=== PATIENT | female | born 1960 | race Caucasian/White ===

== ENCOUNTER 2017-12-29 06:30 | Emergency (ER) | payer OTHER ==
[2017-12-29] MEDS ORDERED: traMADol 50 MG Tab PO ONE (07:31)
--- NOTE | 2017-12-29 07:37 | EDM.PDOC ---
ED HPI GENERAL MEDICAL PROBLEM - General Chief Complaint: General Stated Complaint: FELL INJURED RIBS Time Seen by Provider: 12/29/17 07:05 Source of Information: Reports: Patient, Family, RN History Limitations: Reports: No Limitations - History of Present Illness INITIAL COMMENTS - FREE TEXT/NARRATIVE: 57 yo female fell getting out of bed this morning about 0430h when she tripped over a suitcase. Has pain with breathing. Has not noticed gross hematuria. No SOB. Took acetaminophen without relief. Has many medication allergies. No other injuries. 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 Left Upper Posterior Chest Pain Score (Numeric/FACES): 9 - Related Data Allergies Allergy/AdvReac Type Severity Reaction Status Date / Time acetaminophen [From Percocet] Allergy Itching Verified 12/29/17 06:48 aspirin Allergy Swelling Verified 12/29/17 06:48 codeine Allergy Itching Verified 12/29/17 06:48 ibuprofen Allergy Swelling Verified 12/29/17 06:48 oxycodone [From Percocet] Allergy Itching Verified 12/29/17 06:48 Penicillins Allergy Cannot Verified 12/29/17 06:48 Remember propoxyphene [From Darvon] Allergy Itching Verified 12/29/17 06:48 ropinirole [From Requip] Allergy Nausea Verified 12/29/17 06:48 Home Meds: Home Meds Albuterol [Ventolin HFA] 1 - 2 puff INH ASDIRECTED PRN 12/29/17 [History] Cetirizine [ZyrTEC] 10 mg PO ASDIRECTED PRN 12/29/17 [History] Omeprazole 40 mg PO BID 12/29/17 [History] Pramipexole [Mirapex] 0.25 mg PO ASDIRECTED PRN 12/29/17 [History] Zolpidem Tartrate [Ambien] 10 mg PO DAILY 12/29/17 [History] Past Medical History Respiratory History: Reports: Asthma Gastrointestinal History: Reports: GERD 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 Social & Family History - Alcohol Use Number of Drinks Per Day: 3 - Recreational Drug Use Recreational Drug Use: No ED ROS GENERAL - Review of Systems Review Of Systems: See Below Constitutional: Reports: No Symptoms HEENT: Reports: No Symptoms Respiratory: Reports: Pleuritic Chest Pain. Denies: Shortness of Breath, Wheezing, Cough, Sputum, Hemoptysis Cardiovascular: Reports: No Symptoms GI/Abdominal: Reports: No Symptoms : Reports: No Symptoms Musculoskeletal: Reports: Back Pain (L mid back) Skin: Reports: No Symptoms Neurological: Reports: No Symptoms ED EXAM, GENERAL - Physical Exam Exam: See Below Exam Limited By: No Limitations General Appearance: Alert, WD/WN, No Apparent Distress Eye Exam: Bilateral Eye: Normal Inspection Ears: Normal External Exam, Normal Canal, Hearing Grossly Normal, Normal TMs Ear Exam: Bilateral Ear: Auricle Normal, Canal Normal, TM normal Nose: Normal Inspection, Normal Mucosa, No Blood Throat/Mouth: Normal Inspection, Normal Lips, Normal Oropharynx, Normal Voice, No Airway Compromise Head: Atraumatic, Normocephalic Neck: Normal Inspection, Supple, Non-Tender Respiratory/Chest: No Respiratory Distress, Lungs Clear, Normal Breath Sounds, No Accessory Muscle Use Cardiovascular: Regular Rate, Rhythm, No Edema GI/Abdominal: Normal Bowel Sounds, Soft, Non-Tender, No Distention Back Exam: Normal Inspection, Other (rib tenderness without associated crepitus over the L mid back. ). No: CVA Tenderness (R), CVA Tenderness (L) Extremities: Normal Inspection, Normal Range of Motion, Non-Tender, No Pedal Edema Neurological: Alert, Oriented, CN II-XII Intact, Normal Cognition, No Motor/ Sensory Deficits Psychiatric: Normal Affect, Normal Mood Skin Exam: Warm, Dry, Intact, Normal Color, No Rash Lymphatic: No Adenopathy Course - Vital Signs Last Recorded V/S: Last Vital Signs Temp 37.2 C 12/29/17 06:49 Pulse 76 12/29/17 06:49 Resp 16 12/29/17 06:49 BP 133/80 12/29/17 06:49 Pulse Ox 98 12/29/17 06:49 - Orders/Labs/Meds Orders: Active Orders 24 hr Category Date Time Status Chest 2V [CR] Stat Exams 12/29/17 07:31 Taken UA W/MICROSCOPIC [URIN] Stat Lab 12/29/17 08:12 Ordered Labs: Laboratory Tests 12/29/17 Range/Units 08:12 Urine Color Yellow Urine Appearance Slightly cloudy Urine pH 5.0 (4.5-8.0) Ur Specific [place] 1.020 (1.008-1.030) Urine Protein Negative (NEGATIVE) mg/dL Urine Glucose (UA) Normal (NEGATIVE) mg/dL Urine Ketones Negative (NEGATIVE) mg/dL Urine Occult Blood Negative (NEGATIVE) Urine Nitrite Negative (NEGATIVE) Urine Bilirubin Negative (NEGATIVE) Urine Urobilinogen Normal (NORMAL) mg/dL Ur Leukocyte Esterase Negative (NEGATIVE) Urine RBC Not seen (0-5) Urine WBC 0-5 (0-5) Ur Epithelial Cells Rare Amorphous Sediment Rare Urine Bacteria Rare Urine Mucus Moderate Urine Other See note Meds: Medications Discontinued Medications Generic Name Dose Route Start Last Admin Trade Name Freq PRN Reason Stop Dose Admin Tramadol HCl 100 mg 12/29/17 07:31 12/29/17 07:37 Ultram PO 12/29/17 07:32 100 mg ONETIME ONE Administration - Radiology Interpretation Free Text/Narrative:: CXR-2 or 3 fx's noted on left, no pneumothorax. Departure - Departure Time of Disposition: 09:00 Disposition: Home, Self-Care 01 Condition: Fair Clinical Impression: Ribs, multiple fractures Qualifiers: Encounter type: initial encounter Fracture type: closed Laterality: left Qualified Code(s): S22.42XA - Multiple fractures of ribs, left side, initial encounter for closed fracture - Discharge Information Referrals: PCP,None [Primary Care Provider] - Forms: ED Department Discharge - My Orders Last 24 Hours: My Active Orders 12/29/17 07:31 Chest 2V [CR] Stat 12/29/17 08:12 UA W/MICROSCOPIC [URIN] Stat - Assessment/Plan Last 24 Hours: My Active Orders 12/29/17 07:31 Chest 2V [CR] Stat 12/29/17 08:12 UA W/MICROSCOPIC [URIN] Stat
--- NOTE | 2017-12-29 09:20 | CR ---
CHEST: 2 view CLINICAL HISTORY:Fall, rib pain COMPARISON:None FINDINGS: There are slightly displaced fractures of the sixth through ninth ribs. There is no pleura l effusion or pneumothorax. Heart and pulmonary vascularity appear normal.. IMPRESSION: Fractures of the left sixth through ninth ribs No pneumothorax or pleural effusion
== END 2017-12-29 09:25 | disposition home or self-care (01) ==
LOC: JP.ED 06:30
DX: S22.42XA Multiple fractures of ribs, left side, initial encounter for closed fracture (principal); J45.909 Unspecified asthma, uncomplicated; K21.9 Gastro-esophageal reflux disease without esophagitis; Z88.8 Allergy status to other drugs, medicaments and biological substances; Z88.6 Allergy status to analgesic agent; Z88.0 Allergy status to penicillin; W06.XXXA Fall from bed, initial encounter
CPT/HCPCS: 71046; 81001; 99284; A9270